=== PATIENT | male | born 1975 | race Caucasian/White ===

== ENCOUNTER 2017-07-07 13:57 | Emergency (ER) | payer OTHER ==
[2017-07-07] MEDS ORDERED: NS 0.9% 1000 ML* 1,000 ML IV ONE (14:08)
[2017-07-07] MEDS ORDERED: diPHENhydraMINE IV* 50 MG/ML 1 ml VIAL (BENADRYL) IV ONE (14:08)
[2017-07-07] MEDS ORDERED: methylPREDNISolone 125 MG* 2 ML VIAL ONE (14:08)
[2017-07-07] MEDS ORDERED: methylPREDNISolone 125 MG* 2 ML VIAL IV ONE (14:08)
[2017-07-07] MEDS ORDERED: diPHENhydraMINE IV* 50 MG/ML 1 ml VIAL (BENADRYL) ONE (14:08)
[2017-07-07] MEDS ORDERED: Famotidine IV* 10 MG/ML 2 ML (20 mg) IV SLOW PU ONE (14:08)
[2017-07-07] MEDS ORDERED: Famotidine IV* 10 MG/ML 2 ML (20 mg) ONE (14:09)
--- NOTE | 2017-07-07 14:15 | ED ---
Allergic Reaction/Systemic - HPI Summary HPI Summary: Pt here w/ reaction he presumes to bee sting. Was out running this morning and got stung. Kept running but felt more tired all of a sudden and developed body wide rash. Denies throat tightness, tongue/face swelling, trouble breathing or SOB. H/o asthma which has not been an issues in years. Does not feel he's having asthma sx at this time. Denies nausea, vomiting or ad pain. Only known allergies are to cats - no recent exposure. - History of Current Complaint Hx Obtained From: Patient Pain Intensity: 2 <Bertha Julio - Last Filed: 07/07/17 17:50> <Serena Dennis - Last Filed: 07/08/17 07:39> - History of Current Complaint Chief Complaint: EDAllergicReaction Time Seen by Provider: 07/07/17 14:06 - Allergies/Home Medications Allergies/Adverse Reactions: Allergies Allergy/AdvReac Type Severity Reaction Status Date / Time Penicillins Allergy Unknown Verified 07/07/17 14:04 Reaction Details PMH/Surg Hx/FS Hx/Imm Hx Previously Healthy: Yes Endocrine/Hematology History: Denies: Hx Diabetes, Autoimmune Disease Cardiovascular History: Reports: Hx Hypertension - elevated briefly when he initially moved here 2 years ago Respiratory History: Reports: Hx Asthma - h/o but no tx in years Neurological History: Denies: Other Neuro Impairments/Disorders Psychiatric History: Reports: Hx Anxiety - Surgical History Surgery Procedure, Year, and Place: HERNIA REPAIR WHEN Infectious Disease History: No Infectious Disease History: Denies: Traveled Outside the [place] in Last 30 Days - Family History Known Family History: Negative: Cardiac Disease, Hypertension, Diabetes - Social History Lives: With Family Alcohol Use: Weekly Alcohol Amount: 1 DRINK/D Hx Substance Use: No Substance Use Type: Reports: None Hx Tobacco Use: No Smoking Status (MU): Never Smoked Tobacco <Bertha Julio - Last Filed: 07/07/17 17:50> Review of Systems Positive: Fatigue - mild as in HPI Eyes: Negative ENT: Negative Cardiovascular: Negative Respiratory: Negative Gastrointestinal: Negative Positive: no symptoms reported Musculoskeletal: Negative Skin: Other Negative: Headache Positive: Anxious All Other Systems Reviewed And Are Negative: Yes <Bertha Julio - Last Filed: 07/07/17 17:50> Physical Exam Triage Information Reviewed: Yes Vital Signs On Initial Exam: Initial Vitals Temp Pulse Resp BP Pulse Ox 97.7 F 101 20 135/84 100 07/07/17 14:05 07/07/17 14:05 07/07/17 14:05 07/07/17 14:05 07/07/17 14:05 Vital Signs Reviewed: Yes Appearance: Positive: Well-Nourished - fit, no apparent difficulty breathing however is anxious, tearful at times, shaking at times Skin: Positive: Warm - diffuse urticaria and sweaty skin (pt just completed running); area of what appears to be dermographia along anterior tibial region Head/Face: Positive: Normal Head/Face Inspection Eyes: Positive: EOMI ENT: Positive: Hearing grossly normal, Pharynx normal - mucosa moist Neck: Positive: Supple, Nontender - edema Respiratory/Lung Sounds: Positive: Clear to Auscultation, Breath Sounds Present. Negative: Stridor, Wheezes Cardiovascular: Positive: Normal, RRR Abdomen Description: Positive: Nontender, Soft Bowel Sounds: Positive: Present Musculoskeletal: Positive: Normal, Strength/ROM Intact Neurological: Positive: Normal, Sensory/Motor Intact, Alert, Oriented to Person Place, Time, CN Intact II-III Psychiatric: Positive: Anxious <Bertha Julio - Last Filed: 07/07/17 17:50> Vital Signs On Initial Exam: Initial Vitals Temp Pulse Resp BP Pulse Ox 97.7 F 101 20 135/84 100 07/07/17 14:05 07/07/17 14:05 07/07/17 14:05 07/07/17 14:05 07/07/17 14:05 <Serena Dennis - Last Filed: 07/08/17 07:39> Diagnostics - Vital Signs Vital Signs Temp Pulse Resp BP Pulse Ox 07/07/17 14:05 97.7 F 101 20 135/84 100 <Bertha Julio - Last Filed: 07/07/17 17:50> - Vital Signs Vital Signs Temp Pulse Resp BP Pulse Ox 07/07/17 18:12 86 16 124/80 07/07/17 16:00 74 121/73 96 07/07/17 15:30 75 126/76 96 07/07/17 15:00 72 125/86 96 07/07/17 14:30 74 134/87 98 07/07/17 14:24 75 98 07/07/17 14:05 97.7 F 101 20 135/84 100 <Serena Dennis - Last Filed: 07/08/17 07:39> Re-Evaluation - Re-Evaluation First Eval Change: Improved <Bertha Julio - Last Filed: 07/07/17 17:50> Allergic Reaction Course/Dx - Course Course Of Treatment: Pt presents w/ body wide itching and hives after a bee sting earlier today while running. Denies airway complaints and improved w/ NS, benadryl, pepcid and solumedrol. Drank water and ate turkey sandwich w/o difficulty. Education about allergic reaction and will provide epi pen. Explained when/how to use this with pt and who voice understanding. Also reviewed danger s/sx of when to return to ED. Will f/u w/ PCP and percher for further investigation. <Bertha Julio - Last Filed: 07/07/17 17:50> <Serena Dennis - Last Filed: 07/08/17 07:39> - Diagnoses Provider Diagnoses: Systemic reaction to bee sting Discharge <Bertha Julio - Last Filed: 07/07/17 17:50> <Serena Dennis - Last Filed: 07/08/17 07:39> - Discharge Plan Condition: Stable Disposition: HOME Prescriptions: Epinephrine [Epipen 2-Yan] 0.3 mg IM ONCE PRN #1 inj PRN Reason: Allergy Symptoms predniSONE TAB* [Deltasone TAB*] 40 mg PO DAILY #8 tab Patient Education Materials: General Allergic Reaction (ED), Insect Bite or Sting (ED) Referrals: Jennifer Patricia MD [Primary Care Provider] - Additional Instructions: You appear to have had a systemic allergic reaction to a bee sting today. You may rest, stay hydrated, avoid heat and take benadryl 50mg as needed for itching. You were prescribed prednisone 40mg to take each morning for 4 days. Follow-up with PCP and referral to percher for further testing/treatment as necessary. You have been provided with an epi pen today for future use as needed. *If you develop return of body wide rash/itching and/or development of airway compromise, return to ED Attestation Statement User Type: Provider - I was available for consult. This patient was seen by the SHEREE. The patient was not presented to, seen by, or examined by me. -Ayaka <Serena Dennis - Last Filed: 07/08/17 07:39>
[2017-07-07 18:13] VITALS: BP 124/80
== END 2017-07-07 18:15 | disposition home or self-care (01) ==
LOC: ED 13:57
DX: T63.441A Toxic effect of venom of bees, accidental (unintentional), initial encounter (principal); Y92.9 Unspecified place or not applicable; R53.83 Other fatigue; F41.9 Anxiety disorder, unspecified
CPT/HCPCS: 99283; J1200; J2930